=== PATIENT | male | born 1935 | race Caucasian/White ===

== ENCOUNTER 2017-03-26 09:14 | Day surgery (SDC) | payer MEDICARE, OTHER ==
[~2017-03-26] VITALS: Ht 183 cm; Wt 90.9 kg
[2017-03-26] VITALS (13 sets, daily range): BP systolic 124–163; BP diastolic 58–103; PULSE 52–82; TEMP 98.2
[~2017-03-26 09:14] MED LIST: ASPIRIN E.C. 8181 MG PO; ATARAX25 MG PO; BRILINTA90 MG; BRILINTA90 MG PO; CATAPRES 0.1MG0.1 MG PO; COLACE 100100 MG/CAP PO; COUMADIN 5MG5 MG/TAB PO; DESYREL 50MG50 MG PO; DILAUDID 2MG TAB2 MG PO; FLAGYL500 MG PO; FLEXERIL 1010 MG/TAB PO; LEVAQUIN 5500 MG/TAB PO; LIPITOR 40MG TA40 MG PO; LOVENOX 8080 MG/0.8 SQ; MOTRIN 400400 MG/TAB PO; NEURONTIN300 MG/CAP PO; NITROSTAT0.4 MG/TAB SL; NO HOME MEDICATIONS; NORCO 325 MG-7.1 TAB PO; NORVASC 10MG10 MG PO; PERCOCET 325 MG1 TA2 PO; PERCOCET 325 MG1 TAB PO; PREDNISONE10 MG PO; PREDNISONE20 MG PO; PRINIVIL10 MG PO; REMICADE V100 MG/VIA IV; ROBAXIN 75750 MG/TAB PO; TOPROL XL 25MG25 MG; TOPROL XL 25MG25 MG PO; XANAX .25M0.25 MG/TA PO; ZESTRIL40 MG PO
[2017-03-26 10:04] LABS: PROTHROMBIN TIME 11.4 SECONDS (9.7-12.8)
[2017-03-26 10:05] LABS: HEMATOCRIT 41.7 % (42.0-52.0); HEMOGLOBIN 13.4 g/dl (13.5-18.0); MEAN CELL VOLUME 93 fl (80.0-100.0); MEAN CORPUSCULAR HEMOGLOBIN 30 pg (27.0-31.0); MEAN CORPUSCULAR HGB CONC 32 g/dl (33.0-37.0); MEAN PLATELET VOLUME 11.1 fl (7.4-10.4); PLATELET COUNT 165 K/mm3 (130-400); RED BLOOD COUNT 4.51 M/mm3 (4.20-5.60); REDCELL DISTRIBUTION WIDTH-CV 13.9 % (11.5-14.5); WHITE BLOOD COUNT 4.5 K/mm3 (4.8-10.8)
[2017-03-26 10:16] LABS: CALCIUM 9.5 mg/dL (8.4-10.2); CREATININE, serum 1.08 mg/dL (0.66-1.25)
[2017-03-26 10:24] LABS: POTASSIUM 4.9 mmol/L (3.4-5.0)
[2017-03-26] MEDS ORDERED: PLAVIX 75MG TAB75 MG PO (10:25)
[2017-03-26] MEDS ORDERED: IMDUR 60MG60 MG/TAB PO (15:44)
== END 2017-03-26 19:20 ==
LOC: EUO 09:14 → COL.CAR 09:15 → EUO 19:20
PROVIDERS: Internal Medicine Cardiovascular Disease
DX: I25.10 Atherosclerotic heart disease of native coronary artery without angina pectoris (principal); I25.82 Chronic total occlusion of coronary artery; T82.855A Stenosis of coronary artery stent, initial encounter; Y71.3 Surgical instruments, materials and cardiovascular devices (including sutures) associated with adverse incidents; I10 Essential (primary) hypertension; E78.5 Hyperlipidemia, unspecified; Z82.49 Family history of ischemic heart disease and other diseases of the circulatory system; I25.2 Old myocardial infarction; Z79.899 Other long term (current) drug therapy; M06.9 Rheumatoid arthritis, unspecified; Z87.442 Personal history of urinary calculi; Z79.82 Long term (current) use of aspirin; Z79.02 Long term (current) use of antithrombotics/antiplatelets; Z79.52 Long term (current) use of systemic steroids; Z87.891 Personal history of nicotine dependence
CPT/HCPCS: C1725; C1760; C1769; C1776; C1887; J0583; J2250; J3010; Q9967

== ENCOUNTER 2019-07-17 11:15 | Outpatient (RCR) | payer MEDICARE, OTHER ==
[~2019-07-17 11:15] MED LIST changes: +IMDUR 60MG60 MG/TAB PO; +PLAVIX 75MG TAB75 MG PO
== END 2019-08-17 | disposition still patient (30) ==
LOC: MKS.ESL.PT
DX: M25.512 Pain in left shoulder (principal)

== ENCOUNTER 2021-07-27 13:38 | Outpatient (CLI) | payer MEDICARE, OTHER ==
[~2021-07-27] VITALS: Ht 182.9 cm; Wt 93.1 kg
[2021-07-27 13:41] VITALS: BP 156/72; PULSE 55; TEMP 99.3
[2021-07-27 14:00] VITALS: BP 150/70; PULSE 53
[2021-07-27 14:15] VITALS: BP 146/68; PULSE 48
[2021-07-27 14:45] VITALS: BP 135/68; PULSE 48
== END 2021-07-27 15:47 ==
LOC: EUO 13:38
DX: U07.1 COVID-19 (principal)
CPT/HCPCS: Q0244

== ENCOUNTER 2024-01-13 12:48 | Emergency (ER) | payer MEDICARE, OTHER ==
[~2024-01-13] VITALS: Ht 182.9 cm; Wt 93.2 kg
[2024-01-13 15:05] LABS: COLLECTION METHOD CLEAN CATCH
[2024-01-13 15:15] LABS: URINE APPEARANCE CLEAR (CLEAR/HAZY); URINE BLOOD 1+ (NEGATIVE); URINE COLOR Dark Yellow (YELLOW); URINE GLUCOSE 1+ (NEGATIVE); URINE KETONE TRACE (NEGATIVE); URINE NITRATE NEGATIVE (NEGATIVE); URINE PROTEIN(semi-quant) 2+ (NEGATIVE)
[2024-01-13 15:39] LABS: BASO % 0.2 % (0.0-2.0); EOS % 0.1 % (0.0-4.0); GRAN % 84.1 % (42.2-75.2); HEMATOCRIT 40.4 % (42.0-52.0); HEMOGLOBIN 13.5 g/dl (13.5-18.0); LYMPH # 0.8 K/mm3 (1.2-3.4); LYMPH % 9.4 % (20.0-51.0); MEAN CELL VOLUME 93 fl (80.0-100.0); MEAN CORPUSCULAR HEMOGLOBIN 31 pg (27-31); MEAN CORPUSCULAR HGB CONC 33 g/dl (33.0-37.0); MONO # 0.5 K/mm3 (0.1-0.6); MONO % 5.8 % (1.7-9.3); PLATELET COUNT 119 K/mm3 (130-400); RED BLOOD COUNT 4.36 M/mm3 (4.20-5.60); REDCELL DISTRIBUTION WIDTH-CV 12.5 % (11.5-14.5)
[2024-01-13 15:51] LABS: ALBUMIN 3.3 gm/dL (3.4-4.8); BILIRUBIN,TOTAL 2.8 mg/dL (0.2-1.2); CALCIUM 9.3 mg/dL (8.4-10.2); CREATININE, serum 1.27 mg/dL (0.72-1.25); POTASSIUM 4.2 mmol/L (3.5-4.5)
[2024-01-13] MEDS ORDERED: cefTRIAXone 1 G in Water For Injection,Sterile 10 ML IV ONE (16:15)
[2024-01-13] MEDS ORDERED: NS 500 ML IV ONE (16:15)
[2024-01-13] MEDS ORDERED: CEPHALEXIN500 M1 PO (16:39)
[2024-01-13 18:04] VITALS: BP 145/74; PULSE 64; TEMP 99
[2024-01-14] MEDS ORDERED: TYLENOL 500MG500 MG PO (16:00)
[2024-01-14] MEDS ORDERED: TESSALON P100 MG/CAP PO (16:02)
[2024-01-14] MEDS ORDERED: CEPHALEXIN500 M1 PO (16:03)
[2024-01-14] MEDS ORDERED: FOLIC ACID 11 MG/TA1 PO (16:04)
[2024-01-14] MEDS ORDERED: FLONASEALLERGY NS (16:04)
[2024-01-14] MEDS ORDERED: MOBIC15 MG PO (16:04)
[2024-01-14] MEDS ORDERED: METHOTREXA2.5 MG/TAB PO (16:05)
[2024-01-14] MEDS ORDERED: PRIL40 PO (16:06)
[2024-01-14] MEDS ORDERED: VITAMIN D31000 I1 PO (16:07)
[2024-01-14] MEDS ORDERED: DESYREL 50MG50 MG PO (16:07)
== END 2024-01-13 18:10 | disposition home or self-care (01) ==
LOC: COL.ER 12:48 → EDBD 12:49 → COL.ER 12:49
PROVIDERS: Physician Assistant
DX: N39.0 Urinary tract infection, site not specified (principal); Z87.442 Personal history of urinary calculi; Z88.1 Allergy status to other antibiotic agents
CPT/HCPCS: J0696; J7040

== ENCOUNTER 2024-01-18 07:53 | Outpatient (RCR) | payer MEDICARE, OTHER ==
[~2024-01-18] VITALS: Ht 182.9 cm; Wt 91.0 kg
[~2024-01-18 07:53] MED LIST changes: +CEPHALEXIN500 M1 PO; +FLONASEALLERGY NS; +FOLIC ACID 11 MG/TA1 PO; +METHOTREXA2.5 MG/TAB PO; +MOBIC15 MG PO; +PRIL40 PO; +TESSALON P100 MG/CAP PO; +TYLENOL 500MG500 MG PO; +VITAMIN D31000 I1 PO
[2024-01-22] MEDS ORDERED: ROCEPHIN VIA1 G/VIAL IV (07:52)
[2024-01-23 07:48] VITALS: TEMP 97.9
[2024-01-27 08:30] VITALS: BP 169/74; PULSE 55
== END 2024-01-27 09:47 ==
LOC: EUO 01-27 08:15
DX: A41.81 Sepsis due to Enterococcus (principal)

== ENCOUNTER 2024-01-23 08:00 | Outpatient (RCR) | payer MEDICARE, OTHER ==
[2024-01-14 15:30] VITALS: BP 160/68; PULSE 44; TEMP 99.5
[2024-01-15 08:21] VITALS: BP 169/79; PULSE 82; TEMP 98.1
[2024-01-16 08:30] VITALS: BP 146/75; PULSE 57; TEMP 98.4
[2024-01-17 08:00] VITALS: BP 160/72; PULSE 58; TEMP 97.9
[2024-01-20 08:05] VITALS: BP 160/69; PULSE 50
--- NOTE | 2024-01-20 09:20 | NUR ---
0801 - [facility] presented [facility]. Navjot NEVAREZ called reported the patient had an incident lastnight where he reposition in bed and felt a discomfort in his chest. He was concerned that it might have been his PICC line. She flushed the line and it flushed easily with good blood return. Advised her to get a chest x-ray to verify the catheter tip is still in the correct place. She also reported his dressing was soiled and needed changed. 0836 - Chest x-ray was reviewed and catheter tip remains in correct placement in the lower SVC. 0845 - Reports results to pt and Navjot Dressing changed at this time as well.
[2024-01-21 07:57] VITALS: BP 166/67; PULSE 48; TEMP 97.8
[2024-01-22 07:47] VITALS: BP 156/75; PULSE 50; TEMP 98.1
[~2024-01-23] VITALS: Ht 182.9 cm; Wt 91.0 kg
[2024-01-23 07:48] VITALS: BP 161/71; PULSE 50; TEMP 97.9
[~2024-01-23 08:00] MED LIST changes: +NS Flush 10 ML SYRINGE (PICC Line - 10 mL Daily if not in use) ICA SCH; +NS Flush 10 ML SYRINGE (PICC Line - 10 mL PRN) ICA; +ROCEPHIN VIA1 G/VIAL IV; +Rocuronium 50 MG/5 ML Multi-Dose VIAL ONE; +cefTRIAXone 1 G in Water For Injection,Sterile 10 ML IV SCH
== END 2024-01-23 08:20 | disposition home or self-care (01) ==
LOC: EUO 08:00
DX: N39.0 Urinary tract infection, site not specified (principal)
CPT/HCPCS: C1751; J0696